=== PATIENT | male | born 1960 | race Caucasian/White ===

== ENCOUNTER 2016-11-04 19:04 | Emergency (ER) | payer MEDICAID ==
[2013-12-26 14:27] VITALS: BMI 24.4
[~2016-11-04 19:04] MED LIST: BACTRIM DS TABL1 TAB PO; HYDROCODONE-APA1 TAB PO; PERCOCET 10/3251 TA1 PO; PROAIR HFA8.5 GM INH; VALIUM10 MG PO
== END 2016-11-04 22:53 | disposition home or self-care (01) ==
LOC: D.ER 19:04
DX: G43.909 Migraine, unspecified, not intractable, without status migrainosus (principal); F17.200 Nicotine dependence, unspecified, uncomplicated

== ENCOUNTER 2016-11-06 09:10 | Emergency (ER) | payer MEDICAID ==
[2013-12-26 14:27] VITALS: BMI 24.4
== END 2016-11-06 10:29 | disposition home or self-care (01) ==
LOC: D.ER 09:10
DX: G43.909 Migraine, unspecified, not intractable, without status migrainosus (principal); F17.200 Nicotine dependence, unspecified, uncomplicated

== ENCOUNTER 2016-11-10 08:29 | Emergency (ER) | payer MEDICAID ==
[2013-12-26 14:27] VITALS: BMI 24.4
== END 2016-11-10 13:11 | disposition home or self-care (01) ==
LOC: D.ER 08:29
DX: G43.909 Migraine, unspecified, not intractable, without status migrainosus (principal)

== ENCOUNTER 2017-05-11 18:36 | Inpatient (IN) | payer MEDICAID ==
[~2017-05-11] VITALS: Ht 185.4 cm; Wt 72.3 kg
--- NOTE | ~2017-05-11 | OP ---
PATIENT NAME: JUANCARLOS ESPARZA MEDICAL RECORD: [id number] :56 LOCATION:D.M2 D.2139 ADMISSION DATE:05/12/17 SURGEON: DELON GUO MD DATE OF OPERATION: 05/22/2017 PREOPERATIVE DIAGNOSES: 1. 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 2. Hepatitis C. 3. Liver cirrhosis. POSTOPERATIVE DIAGNOSES: 1. 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 2. Hepatitis C. 3. Liver cirrhosis. PROCEDURE: 1. Left subclavian vein port placement. 2. Fluoroscopic interpretation. SURGEON: Delon Guo MD REPORT OF PROCEDURE: The patient's left chest was prepped and draped in sterile fashion. A needle was used to cannulate the left subclavian vein and a guidewire was advanced with ease. A Fluoro was used to note that the wire was in good position in the venous system. A skin incision was made on the left superior lateral chest and a subcutaneous pouch was made over the pectoral fascia. The catheter was tunneled between this pouch and the wire exit site. We then sutured the port to the fascia using interrupted 2-0 Prolenes times 2. The catheter was cut with a beveled tip at 24 cm. The dilator trocar device was placed over the wire and the wire and dilator were removed. The catheter tip was advanced through the trocar and the trocar was removed. The catheter tip was noted to be resting in good position at the right atrial superior vena caval junction. The catheter aspirated nonpulsatile dark blood and flushed easily with heparinized saline. The subcutaneous tissues were reapproximated with interrupted 3-0 Vicryls and the skin was closed with subcutaneous 5-0 Monocryl. We then accessed the port and placed a dressing over it. COMPLICATIONS: None. CONDITION: Stable. ANESTHESIA: General endotracheal. BLOOD LOSS: Minimal. TRANSINT:[id number] Voice Confirmation ID: [id number] DOCUMENT ID: [id number] OPERATIVE REPORT [id number] VILMAMONIKANathen Atkins DELON GUO MD at 0841 CC: [id number] DICTATION DATE: 05/22/17 1011 ONLINE PUBLISHER: 05/22/17 1055 DIS IN 05/23/17 [id number] [place] [address]
[2017-05-11 19:44] LABS: BASOPHILS 0.4 % (0-2); EOSINOPHILS 0.3 % (0-7); HEMATOCRIT 22.3 % (42.0-54.0); IMMATURE GRANULOCYTES 0.1 % (0-5); LYMPHOCYTES 13.6 % (15-50); MCV 60.8 fL (80.0-100.0); MONOCYTES 11.8 % (2-11); NEUTROPHILS 73.8 % (40-80); RBC 3.67 10x6/uL (4.20-6.10); RDW 18.5 % (11.5-14.5); WBC 9.1 10x3/uL (4.8-10.8)
[2017-05-11 20:15] LABS: ALBUMIN 2.8 g/dL (3.4-5.0); ALKALINE PHOSPHATASE 208 U/L (46-116); ALT (SGPT) 23 U/L (10-68); CALC OSMOLALITY 280 mosm/kg (275-300); CALCIUM 9.3 mg/dL (8.5-10.1); CARBON DIOXIDE 28.8 mmol/L (21.0-32.0); CHLORIDE - SERUM 104 mmol/L (98-107); CREATININE - SERUM 0.6 mg/dL (0.6-1.3); GLUCOSE 105 mg/dL (74-106); PROTEIN - SERUM 7.2 g/dL (6.4-8.2); SODIUM 141 mmol/L (136-145); UREA NITROGEN 12 mg/dL (7-18); eGFR NON AFRICAN AMERICAN > 90 mL/min (90-120)
[2017-05-11 20:17] LABS: HEMOGLOBIN 5.8 g/dL (13.5-17.5); MCH 15.8 pg (26.0-34.0); PLATELET COUNT 234 10x3/uL (130-400)
[2017-05-11 20:34] LABS: POTASSIUM - SERUM 2.4 mmol/L (3.5-5.1)
[2017-05-11 22:37] LABS: APPEARANCE CLEAR (CLEAR); BILIRUBIN NEGATIVE (NEGATIVE); COLOR YELLOW (YELLOW); GLUCOSE NEGATIVE (NEGATIVE); KETONE NEGATIVE (NEGATIVE); NITRITE NEGATIVE (NEGATIVE); PROTEIN NEGATIVE (NEGATIVE); UROBILINOGEN NORMAL (NORMAL)
[2017-05-11 22:50] LABS: UDS - AMPHET NEGATIVE QUAL (NEGATIVE); UDS - BARB NEGATIVE QUAL (NEGATIVE); UDS - BENZO NEGATIVE QUAL (NEGATIVE); UDS - COCAINE NEGATIVE QUAL (NEGATIVE); UDS - OPIATE NEGATIVE QUAL (NEGATIVE); UDS - PCP NEGATIVE QUAL (NEGATIVE); UDS - THC POSITIVE QUAL (NEGATIVE)
[2017-05-12] MEDS ORDERED: SOMA350 MG PO (03:06)
[2017-05-12] MEDS ORDERED: ALENDRONATE SOD70 MG PO (03:24)
[2017-05-12 03:32] VITALS: BP 184/82; BMI 19.8
[2017-05-12 06:16] VITALS: BP 192/83
[2017-05-12 07:33] LABS: HEMATOCRIT 30.1 % (42.0-54.0); HEMOGLOBIN 8.6 g/dL (13.5-17.5)
[2017-05-12 07:46] LABS: POTASSIUM - SERUM 2.6 mmol/L (3.5-5.1)
[2017-05-12 08:27] VITALS: BP 158/75
[2017-05-12 10:47] VITALS: BMI 19.7
[2017-05-12 11:46] VITALS: BP 165/77
[2017-05-12 13:18] VITALS: Ht 185.4 cm; Wt 72.3 kg
[2017-05-12 15:34] VITALS: BP 43/65
[2017-05-12 20:00] VITALS: BP 160/83
[2017-05-13] VITALS: BP 150/83
[2017-05-13 04:00] VITALS: BP 158/80
[2017-05-13 05:16] LABS: BASOPHILS 0.5 % (0-2); EOSINOPHILS 2.3 % (0-7); HEMATOCRIT 31.4 % (42.0-54.0); HEMOGLOBIN 8.7 g/dL (13.5-17.5); IMMATURE GRANULOCYTES 0.2 % (0-5); LYMPHOCYTES 11.7 % (15-50); MCHC 27.7 g/dL (31.0-37.0); MONOCYTES 12.1 % (2-11); NEUTROPHILS 73.2 % (40-80); RDW 20.7 % (11.5-14.5); WBC 8.1 10x3/uL (4.8-10.8)
[2017-05-13 05:24] LABS: MCH 18.4 pg (26.0-34.0); MCV 66.4 fL (80.0-100.0); PLATELET COUNT 152 10x3/uL (130-400); RBC 4.73 10x6/uL (4.20-6.10)
[2017-05-13 05:44] LABS: ALBUMIN 2.5 g/dL (3.4-5.0); ALKALINE PHOSPHATASE 232 U/L (46-116); ALT (SGPT) 27 U/L (10-68); CALC OSMOLALITY 285 mosm/kg (275-300); CARBON DIOXIDE 26.5 mmol/L (21.0-32.0); CHLORIDE - SERUM 108 mmol/L (98-107); CREATININE - SERUM 0.7 mg/dL (0.6-1.3); GLUCOSE 99 mg/dL (74-106); POTASSIUM - SERUM 3.1 mmol/L (3.5-5.1); PROTEIN - SERUM 6.7 g/dL (6.4-8.2); SODIUM 144 mmol/L (136-145); UREA NITROGEN 10 mg/dL (7-18); eGFR NON AFRICAN AMERICAN > 90 mL/min (90-120)
[2017-05-13 07:49] VITALS: BP 153/79
[2017-05-13 08:56] LABS: APTT 29.8 SECONDS (22.8-39.4); INR 1.12 (0.85-1.17)
[2017-05-13 11:15] VITALS: BP 130/71
[2017-05-13 15:14] VITALS: BP 140/73
[2017-05-13 20:00] VITALS: BP 162/79
[2017-05-14] VITALS: BP 164/84
[2017-05-14 04:00] VITALS: BP 171/85
[2017-05-14 05:47] LABS: BASOPHILS 0.5 % (0-2); EOSINOPHILS 1.9 % (0-7); HEMATOCRIT 31.6 % (42.0-54.0); HEMOGLOBIN 8.7 g/dL (13.5-17.5); IMMATURE GRANULOCYTES 0.4 % (0-5); LYMPHOCYTES 11.1 % (15-50); MCHC 27.5 g/dL (31.0-37.0); MCV 66.9 fL (80.0-100.0); MONOCYTES 10.9 % (2-11); NEUTROPHILS 75.2 % (40-80); PLATELET COUNT 163 10x3/uL (130-400); RBC 4.72 10x6/uL (4.20-6.10); RDW 21.5 % (11.5-14.5); WBC 8.3 10x3/uL (4.8-10.8)
[2017-05-14 05:54] LABS: ALBUMIN 2.6 g/dL (3.4-5.0); ALKALINE PHOSPHATASE 220 U/L (46-116); ALT (SGPT) 25 U/L (10-68); BILIRUBIN - TOTAL 0.81 mg/dL (0.2-1.3); CALC OSMOLALITY 276 mosm/kg (275-300); CARBON DIOXIDE 27.3 mmol/L (21.0-32.0); CHLORIDE - SERUM 103 mmol/L (98-107); CREATININE - SERUM 0.6 mg/dL (0.6-1.3); GLUCOSE 95 mg/dL (74-106); MCH 18.4 pg (26.0-34.0); POTASSIUM - SERUM 3.2 mmol/L (3.5-5.1); PROTEIN - SERUM 7.1 g/dL (6.4-8.2); SODIUM 139 mmol/L (136-145); UREA NITROGEN 9 mg/dL (7-18); eGFR NON AFRICAN AMERICAN > 90 mL/min (90-120)
[2017-05-14 07:38] VITALS: BP 148/78
[2017-05-14 09:55] LABS: INR 1.09 (0.85-1.17); PROTIME 13.7 SECONDS (11.6-15.0)
[2017-05-14 09:56] LABS: APTT 32.6 SECONDS (22.8-39.4)
[2017-05-14 10:20] LABS: HEPATITIS C ANTIBODY >11.0 (0.0-0.9)
[2017-05-14 11:14] VITALS: BP 148/82
[2017-05-14 11:19] LABS: ALPHA FETOPROTEIN -(TUMOR MRK) 632.3 ng/mL (0.0-8.3); CA 19-9 342 U/mL (0-35); CEA 4.3 ng/mL (0.0-4.7)
[2017-05-14 20:00] VITALS: BP 133/73
[2017-05-15] VITALS (12 sets, daily range): BP systolic 128–158; BP diastolic 70–92
[2017-05-15 05:40] LABS: BASOPHILS 0.3 % (0-2); EOSINOPHILS 1.8 % (0-7); HEMATOCRIT 27.7 % (42.0-54.0); HEMOGLOBIN 7.7 g/dL (13.5-17.5); IMMATURE GRANULOCYTES 0.2 % (0-5); LYMPHOCYTES 7.6 % (15-50); MCHC 27.8 g/dL (31.0-37.0); MCV 66.9 fL (80.0-100.0); NEUTROPHILS 76.1 % (40-80); RBC 4.14 10x6/uL (4.20-6.10); RDW 22.4 % (11.5-14.5)
[2017-05-15 05:47] LABS: MCH 18.6 pg (26.0-34.0); PLATELET COUNT 130 10x3/uL (130-400); WBC 6.2 10x3/uL (4.8-10.8)
[2017-05-15 06:00] LABS: ALBUMIN 2.3 g/dL (3.4-5.0); ALKALINE PHOSPHATASE 179 U/L (46-116); ALT (SGPT) 17 U/L (10-68); BILIRUBIN - TOTAL 0.68 mg/dL (0.2-1.3); CALC OSMOLALITY 273 mosm/kg (275-300); CALCIUM 8.8 mg/dL (8.5-10.1); CARBON DIOXIDE 28.3 mmol/L (21.0-32.0); CHLORIDE - SERUM 103 mmol/L (98-107); CREATININE - SERUM 0.6 mg/dL (0.6-1.3); GLUCOSE 96 mg/dL (74-106); POTASSIUM - SERUM 3.5 mmol/L (3.5-5.1); PROTEIN - SERUM 6.3 g/dL (6.4-8.2); SODIUM 138 mmol/L (136-145); UREA NITROGEN 8 mg/dL (7-18); eGFR NON AFRICAN AMERICAN > 90 mL/min (90-120)
[2017-05-16] VITALS (7 sets, daily range): BP systolic 135–159; BP diastolic 79–87
[2017-05-16 05:41] LABS: BASOPHILS 0.3 % (0-2); EOSINOPHILS 2.4 % (0-7); IMMATURE GRANULOCYTES 0.2 % (0-5); LYMPHOCYTES 9.2 % (15-50); MCH 20.4 pg (26.0-34.0); MCHC 29.2 g/dL (31.0-37.0); NEUTROPHILS 71.9 % (40-80); PLATELET COUNT 119 10x3/uL (130-400); RDW 23.7 % (11.5-14.5); WBC 6.2 10x3/uL (4.8-10.8)
[2017-05-16 05:43] LABS: HEMATOCRIT 33.6 % (42.0-54.0); HEMOGLOBIN 9.8 g/dL (13.5-17.5)
[2017-05-16 06:09] LABS: ALBUMIN 2.2 g/dL (3.4-5.0); ALKALINE PHOSPHATASE 183 U/L (46-116); ALT (SGPT) 20 U/L (10-68); CALC OSMOLALITY 276 mosm/kg (275-300); CALCIUM 9.2 mg/dL (8.5-10.1); CARBON DIOXIDE 30.2 mmol/L (21.0-32.0); CHLORIDE - SERUM 105 mmol/L (98-107); CREATININE - SERUM 0.6 mg/dL (0.6-1.3); GLUCOSE 105 mg/dL (74-106); POTASSIUM - SERUM 3.4 mmol/L (3.5-5.1); PROTEIN - SERUM 6.5 g/dL (6.4-8.2); SODIUM 139 mmol/L (136-145); UREA NITROGEN 10 mg/dL (7-18); eGFR NON AFRICAN AMERICAN > 90 mL/min (90-120)
[2017-05-17 02:14] VITALS: BP 118/52
[2017-05-17 05:36] VITALS: BP 153/89
[2017-05-17 05:39] LABS: BASOPHILS 0.6 % (0-2); EOSINOPHILS 1.9 % (0-7); HEMATOCRIT 35.3 % (42.0-54.0); HEMOGLOBIN 10.1 g/dL (13.5-17.5); IMMATURE GRANULOCYTES 0.1 % (0-5); LYMPHOCYTES 8.4 % (15-50); MCH 20.7 pg (26.0-34.0); MCHC 28.6 g/dL (31.0-37.0); MONOCYTES 15.6 % (2-11); NEUTROPHILS 73.4 % (40-80); PLATELET COUNT 128 10x3/uL (130-400); RBC 4.89 10x6/uL (4.20-6.10); RDW 24.3 % (11.5-14.5); WBC 6.8 10x3/uL (4.8-10.8)
[2017-05-17 05:41] LABS: MCV 72.2 fL (80.0-100.0)
[2017-05-17 06:11] LABS: ALBUMIN 2.4 g/dL (3.4-5.0); ALKALINE PHOSPHATASE 212 U/L (46-116); ALT (SGPT) 21 U/L (10-68); BILIRUBIN - TOTAL 0.54 mg/dL (0.2-1.3); CALC OSMOLALITY 278 mosm/kg (275-300); CALCIUM 9.5 mg/dL (8.5-10.1); CARBON DIOXIDE 27.5 mmol/L (21.0-32.0); CHLORIDE - SERUM 104 mmol/L (98-107); CREATININE - SERUM 0.6 mg/dL (0.6-1.3); GLUCOSE 109 mg/dL (74-106); POTASSIUM - SERUM 3.7 mmol/L (3.5-5.1); PROTEIN - SERUM 6.4 g/dL (6.4-8.2); SODIUM 140 mmol/L (136-145); UREA NITROGEN 9 mg/dL (7-18); eGFR NON AFRICAN AMERICAN > 90 mL/min (90-120)
[2017-05-17 08:29] VITALS: BP 162/99
[2017-05-17 11:31] VITALS: BP 137/81
[2017-05-17 15:47] VITALS: BP 150/86
[2017-05-17 21:12] VITALS: BP 143/79
[2017-05-18 01:18] VITALS: BP 156/89
[2017-05-18 05:50] VITALS: BP 143/83
[2017-05-18 06:12] LABS: BASOPHILS 0.4 % (0-2); EOSINOPHILS 2.2 % (0-7); HEMATOCRIT 35.7 % (42.0-54.0); HEMOGLOBIN 10.1 g/dL (13.5-17.5); IMMATURE GRANULOCYTES 0.3 % (0-5); LYMPHOCYTES 10.8 % (15-50); MCH 20.4 pg (26.0-34.0); MCHC 28.3 g/dL (31.0-37.0); MCV 72.3 fL (80.0-100.0); MONOCYTES 13.3 % (2-11); PLATELET COUNT 120 10x3/uL (130-400); RBC 4.94 10x6/uL (4.20-6.10); RDW 24.3 % (11.5-14.5); WBC 6.8 10x3/uL (4.8-10.8)
[2017-05-18 06:38] LABS: ALBUMIN 2.4 g/dL (3.4-5.0); ALKALINE PHOSPHATASE 214 U/L (46-116); ALT (SGPT) 20 U/L (10-68); CALC OSMOLALITY 282 mosm/kg (275-300); CALCIUM 9.8 mg/dL (8.5-10.1); CHLORIDE - SERUM 104 mmol/L (98-107); CREATININE - SERUM 0.6 mg/dL (0.6-1.3); GLUCOSE 120 mg/dL (74-106); POTASSIUM - SERUM 3.8 mmol/L (3.5-5.1); PROTEIN - SERUM 6.5 g/dL (6.4-8.2); SODIUM 142 mmol/L (136-145); UREA NITROGEN 11 mg/dL (7-18); eGFR NON AFRICAN AMERICAN > 90 mL/min (90-120)
[2017-05-18 07:40] VITALS: BP 144/81
[2017-05-18 10:44] VITALS: BP 142/77
[2017-05-18 14:57] VITALS: BP 140/73
[2017-05-18 19:00] VITALS: BP 148/84
[2017-05-19 04:00] VITALS: BP 149/84
[2017-05-19 05:50] LABS: BASOPHILS 0.3 % (0-2); EOSINOPHILS 2.2 % (0-7); HEMATOCRIT 34.2 % (42.0-54.0); HEMOGLOBIN 9.7 g/dL (13.5-17.5); IMMATURE GRANULOCYTES 0.2 % (0-5); LYMPHOCYTES 8.6 % (15-50); MCH 20.5 pg (26.0-34.0); MCHC 28.4 g/dL (31.0-37.0); MCV 72.2 fL (80.0-100.0); MONOCYTES 13.4 % (2-11); NEUTROPHILS 75.3 % (40-80); PLATELET COUNT 114 10x3/uL (130-400); RBC 4.74 10x6/uL (4.20-6.10); RDW 24.6 % (11.5-14.5); WBC 6.4 10x3/uL (4.8-10.8)
[2017-05-19 06:17] LABS: ALBUMIN 2.2 g/dL (3.4-5.0); ALKALINE PHOSPHATASE 201 U/L (46-116); ALT (SGPT) 19 U/L (10-68); CALC OSMOLALITY 280 mosm/kg (275-300); CALCIUM 9.6 mg/dL (8.5-10.1); CARBON DIOXIDE 30.3 mmol/L (21.0-32.0); CHLORIDE - SERUM 105 mmol/L (98-107); CREATININE - SERUM 0.6 mg/dL (0.6-1.3); GLUCOSE 108 mg/dL (74-106); POTASSIUM - SERUM 3.5 mmol/L (3.5-5.1); PROTEIN - SERUM 6.3 g/dL (6.4-8.2); SODIUM 141 mmol/L (136-145); UREA NITROGEN 10 mg/dL (7-18); eGFR NON AFRICAN AMERICAN > 90 mL/min (90-120)
[2017-05-19 08:04] VITALS: BP 142/81
[2017-05-19 15:06] VITALS: BP 132/71
[2017-05-19 20:00] VITALS: BP 143/84
[2017-05-20 04:00] VITALS: BP 141/84
[2017-05-20 06:12] LABS: BASOPHILS 0.6 % (0-2); EOSINOPHILS 1.8 % (0-7); HEMOGLOBIN 10.2 g/dL (13.5-17.5); IMMATURE GRANULOCYTES 0.3 % (0-5); LYMPHOCYTES 7.7 % (15-50); MCH 20.6 pg (26.0-34.0); MCHC 28.3 g/dL (31.0-37.0); MCV 72.9 fL (80.0-100.0); MONOCYTES 16.8 % (2-11); NEUTROPHILS 72.8 % (40-80); PLATELET COUNT 134 10x3/uL (130-400); RBC 4.94 10x6/uL (4.20-6.10); RDW 25.2 % (11.5-14.5); WBC 7.1 10x3/uL (4.8-10.8)
[2017-05-20 07:03] LABS: ALBUMIN 2.3 g/dL (3.4-5.0); ALKALINE PHOSPHATASE 245 U/L (46-116); ALT (SGPT) 20 U/L (10-68); BILIRUBIN - TOTAL 0.49 mg/dL (0.2-1.3); CALC OSMOLALITY 282 mosm/kg (275-300); CALCIUM 10.2 mg/dL (8.5-10.1); CARBON DIOXIDE 28.5 mmol/L (21.0-32.0); CHLORIDE - SERUM 105 mmol/L (98-107); CREATININE - SERUM 0.7 mg/dL (0.6-1.3); GLUCOSE 111 mg/dL (74-106); POTASSIUM - SERUM 3.7 mmol/L (3.5-5.1); SODIUM 142 mmol/L (136-145); UREA NITROGEN 10 mg/dL (7-18); eGFR NON AFRICAN AMERICAN > 90 mL/min (90-120)
[2017-05-20 08:57] VITALS: BP 176/105
[2017-05-20 12:16] VITALS: BP 138/79
[2017-05-20 16:10] VITALS: BP 145/88
[2017-05-20 20:00] VITALS: BP 139/88
[2017-05-21 04:00] VITALS: BP 142/79
[2017-05-21 05:57] LABS: BASOPHILS 0.3 % (0-2); EOSINOPHILS 1.5 % (0-7); HEMATOCRIT 34.7 % (42.0-54.0); HEMOGLOBIN 9.9 g/dL (13.5-17.5); IMMATURE GRANULOCYTES 0.2 % (0-5); LYMPHOCYTES 8.7 % (15-50); MCH 20.7 pg (26.0-34.0); MCHC 28.5 g/dL (31.0-37.0); MCV 72.4 fL (80.0-100.0); MONOCYTES 16.1 % (2-11); NEUTROPHILS 73.2 % (40-80); PLATELET COUNT 133 10x3/uL (130-400); RBC 4.79 10x6/uL (4.20-6.10); RDW 25.4 % (11.5-14.5); WBC 6.5 10x3/uL (4.8-10.8)
[2017-05-21 06:23] LABS: ALBUMIN 2.2 g/dL (3.4-5.0); ALKALINE PHOSPHATASE 252 U/L (46-116); ALT (SGPT) 22 U/L (10-68); CALC OSMOLALITY 285 mosm/kg (275-300); CALCIUM 10.6 mg/dL (8.5-10.1); CARBON DIOXIDE 29.4 mmol/L (21.0-32.0); CHLORIDE - SERUM 107 mmol/L (98-107); CREATININE - SERUM 0.6 mg/dL (0.6-1.3); GLUCOSE 110 mg/dL (74-106); POTASSIUM - SERUM 3.8 mmol/L (3.5-5.1); PROTEIN - SERUM 6.8 g/dL (6.4-8.2); SODIUM 143 mmol/L (136-145); UREA NITROGEN 12 mg/dL (7-18); eGFR NON AFRICAN AMERICAN > 90 mL/min (90-120)
[2017-05-21 09:35] VITALS: BP 110/60
[2017-05-21 18:42] VITALS: BP 145/95
[2017-05-21 20:00] VITALS: BP 150/92
[2017-05-22] VITALS (7 sets, daily range): BP systolic 148–166; BP diastolic 77–98
[2017-05-22 06:04] LABS: BASOPHILS 0.3 % (0-2); EOSINOPHILS 1.4 % (0-7); HEMATOCRIT 36.7 % (42.0-54.0); HEMOGLOBIN 10.6 g/dL (13.5-17.5); IMMATURE GRANULOCYTES 0.4 % (0-5); LYMPHOCYTES 9.3 % (15-50); MCHC 28.9 g/dL (31.0-37.0); MCV 72.8 fL (80.0-100.0); MONOCYTES 13.6 % (2-11); PLATELET COUNT 155 10x3/uL (130-400); RBC 5.04 10x6/uL (4.20-6.10); RDW 25.3 % (11.5-14.5); WBC 7.6 10x3/uL (4.8-10.8)
[2017-05-22 06:11] LABS: ALBUMIN 2.4 g/dL (3.4-5.0); ALKALINE PHOSPHATASE 275 U/L (46-116); ALT (SGPT) 21 U/L (10-68); CARBON DIOXIDE 29.2 mmol/L (21.0-32.0); CHLORIDE - SERUM 107 mmol/L (98-107); GLUCOSE 112 mg/dL (74-106); PROTEIN - SERUM 7.3 g/dL (6.4-8.2); SODIUM 142 mmol/L (136-145); eGFR NON AFRICAN AMERICAN 81 mL/min (90-120)
[2017-05-22 06:17] LABS: CALC OSMOLALITY 284 mosm/kg (275-300); UREA NITROGEN 16 mg/dL (7-18)
[2017-05-23 01:14] VITALS: BP 114/78
[2017-05-23 05:05] VITALS: BP 143/74
[2017-05-23 08:27] VITALS: BP 162/81
[2017-05-23] MEDS ORDERED: DURAGESIC1 PATCH .7 TRANSDERM (09:38)
[2017-05-23] MEDS ORDERED: HYDROCODONE-APA1 TAB PO (09:40)
[2017-05-23] MEDS ORDERED: PROTONIX40 MG PO (09:42)
[2017-05-23] MEDS ORDERED: MIRALAX17 GM PO (09:42)
== END 2017-05-23 17:55 | disposition home health service (06) | DRG 436 ==
LOC: D.ER 18:36 → D.M2 05-12 00:48
PROVIDERS: Emergency Medicine; Family Medicine; Internal Medicine Hematology & Oncology; Specialist; Surgery
PROC: 05H633Z Insertion of Infusion Device into Left Subclavian Vein, Percutaneous Approach (ICD-10-PCS; 2017-05-22)
PROC: 0JH63WZ Insertion of Totally Implantable Vascular Access Device into Chest Subcutaneous Tissue and Fascia, Percutaneous Approach (ICD-10-PCS; principal; 2017-05-22 09:00)
DX: C78.7 Secondary malignant neoplasm of liver and intrahepatic bile duct (principal); R18.8 Other ascites; C25.9 Malignant neoplasm of pancreas, unspecified; K21.9 Gastro-esophageal reflux disease without esophagitis; G89.29 Other chronic pain; D64.9 Anemia, unspecified; K74.60 Unspecified cirrhosis of liver; Z87.891 Personal history of nicotine dependence

== ENCOUNTER 2017-05-29 16:11 | Inpatient (IN) | payer MEDICAID ==
[~2017-05-29] VITALS: Ht 182.9 cm; Wt 70.8 kg
[~2017-05-29 16:11] MED LIST changes: +ALENDRONATE SOD70 MG PO; +DURAGESIC1 PATCH .7 TRANSDERM; +MIRALAX17 GM PO; +PROTONIX40 MG PO; +SOMA350 MG PO
[2017-05-29 17:47] LABS: BASOPHILS 0.3 % (0-2); EOSINOPHILS 0.5 % (0-7); HEMATOCRIT 39.1 % (42.0-54.0); HEMOGLOBIN 11.4 g/dL (13.5-17.5); IMMATURE GRANULOCYTES 0.2 % (0-5); MCH 21.3 pg (26.0-34.0); MCHC 29.2 g/dL (31.0-37.0); MCV 73.2 fL (80.0-100.0); MONOCYTES 10.8 % (2-11); NEUTROPHILS 77.2 % (40-80); RBC 5.34 10x6/uL (4.20-6.10); RDW 25.6 % (11.5-14.5); WBC 10.1 10x3/uL (4.8-10.8)
[2017-05-29 18:07] LABS: INR 1.08 (0.85-1.17); PROTIME 13.6 SECONDS (11.6-15.0)
[2017-05-29 18:08] LABS: PLATELET COUNT 229 10x3/uL (130-400)
[2017-05-29 18:12] LABS: ALBUMIN 2.4 g/dL (3.4-5.0); ALKALINE PHOSPHATASE 393 U/L (46-116); ALT (SGPT) 23 U/L (10-68); CALC OSMOLALITY 287 mosm/kg (275-300); CALCIUM 10.6 mg/dL (8.5-10.1); CARBON DIOXIDE 26.5 mmol/L (21.0-32.0); CHLORIDE - SERUM 106 mmol/L (98-107); CREATINE KINASE 43 UL (21-232); CREATININE - SERUM 1.6 mg/dL (0.6-1.3); GLUCOSE 110 mg/dL (74-106); LIPASE 121 U/L (73-393); MAGNESIUM - SERUM 2.4 mg/dL (1.8-2.4); POTASSIUM - SERUM 4.1 mmol/L (3.5-5.1); PRO BNP 554 pg/mL (0-125); PROTEIN - SERUM 7.2 g/dL (6.4-8.2); SODIUM 140 mmol/L (136-145); TROPONIN-I < 0.017 ng/mL (0.000-0.060); UREA NITROGEN 34 mg/dL (7-18); eGFR NON AFRICAN AMERICAN 47 mL/min (90-120)
[2017-05-30] VITALS (7 sets, daily range): BP systolic 119–160; BP diastolic 78–90; Ht 182.9 cm; Wt 70.8 kg
[2017-05-31] VITALS: BP 137/81
[2017-05-31 04:05] VITALS: BP 120/79
[2017-05-31 07:07] LABS: BASOPHILS 0.2 % (0-2); HEMATOCRIT 38.7 % (42.0-54.0); HEMOGLOBIN 11.3 g/dL (13.5-17.5); IMMATURE GRANULOCYTES 0.4 % (0-5); LYMPHOCYTES 7.1 % (15-50); MCH 21.4 pg (26.0-34.0); MCHC 29.2 g/dL (31.0-37.0); MCV 73.2 fL (80.0-100.0); MONOCYTES 11.5 % (2-11); NEUTROPHILS 79.8 % (40-80); PLATELET COUNT 171 10x3/uL (130-400); RBC 5.29 10x6/uL (4.20-6.10); RDW 26.1 % (11.5-14.5); WBC 10.3 10x3/uL (4.8-10.8)
[2017-05-31 07:35] LABS: ALBUMIN 2.2 g/dL (3.4-5.0); BILIRUBIN - TOTAL 0.58 mg/dL (0.2-1.3); CARBON DIOXIDE 24.5 mmol/L (21.0-32.0); CREATININE - SERUM 1.4 mg/dL (0.6-1.3); POTASSIUM - SERUM 4.5 mmol/L (3.5-5.1); PROTEIN - SERUM 7.1 g/dL (6.4-8.2)
[2017-05-31 09:18] VITALS: BP 137/76
[2017-05-31 12:09] VITALS: BP 149/85
[2017-05-31 16:09] VITALS: BP 135/79
[2017-05-31 20:54] VITALS: BP 158/101
[2017-05-31 23:17] LABS: APPEARANCE CLEAR (CLEAR); COLOR YELLOW (YELLOW); GLUCOSE NEGATIVE (NEGATIVE); NITRITE NEGATIVE (NEGATIVE); PROTEIN NEGATIVE (NEGATIVE); SPECIFIC GRAVITY 1.015 (1.005-1.020)
[2017-05-31 23:18] LABS: BILIRUBIN NEGATIVE (NEGATIVE); KETONE SMALL mg/dL (NEGATIVE); UROBILINOGEN NORMAL (NORMAL)
[2017-05-31 23:26] LABS: UDS - AMPHET NEGATIVE QUAL (NEGATIVE); UDS - BARB NEGATIVE QUAL (NEGATIVE); UDS - BENZO POSITIVE QUAL (NEGATIVE); UDS - COCAINE NEGATIVE QUAL (NEGATIVE); UDS - OPIATE POSITIVE QUAL (NEGATIVE); UDS - PCP NEGATIVE QUAL (NEGATIVE); UDS - THC POSITIVE QUAL (NEGATIVE)
[2017-06-01 00:26] VITALS: BP 125/81
[2017-06-01 06:03] VITALS: BP 128/83
[2017-06-01 08:27] VITALS: BP 147/88
[2017-06-01 12:29] VITALS: BP 135/92
[2017-06-01 16:48] VITALS: BP 139/88
[2017-06-01 19:52] VITALS: BP 125/85
[2017-06-02 00:01] VITALS: BP 138/85
[2017-06-02 04:17] VITALS: BP 141/88
[2017-06-02 09:15] VITALS: BP 141/81
[2017-06-02] MEDS ORDERED: Duragesic TRANSDERM (12:56)
[2017-06-02] MEDS ORDERED: Levaquin PO (12:56)
[2017-06-02] MEDS ORDERED: ARTIFICIAL TEAR15 ML EACH EYE (12:57)
[2017-06-02] MEDS ORDERED: FLORAJEN3 CAPS460 MG PO (12:57)
[2017-06-02] MEDS ORDERED: LAC-HYDRIN 5226 ML TOPICAL (12:58)
[2017-06-02] MEDS ORDERED: DILAUDID4 MG PO (13:01)
[2017-06-02 14:25] VITALS: BP 138/88
== END 2017-06-02 15:46 | disposition home health service (06) | DRG 947 ==
LOC: D.ER 16:11 → D.MS 17:52 → D.EDHOLD 17:52 → D.MS 19:25
PROVIDERS: Family Medicine; Nurse Practitioner Family
DX: G89.3 Neoplasm related pain (acute) (chronic) (principal); J18.9 Pneumonia, unspecified organism; C25.9 Malignant neoplasm of pancreas, unspecified; C78.7 Secondary malignant neoplasm of liver and intrahepatic bile duct; N17.9 Acute kidney failure, unspecified; J90 Pleural effusion, not elsewhere classified; Z66 Do not resuscitate; R18.8 Other ascites; K74.60 Unspecified cirrhosis of liver; B19.20 Unspecified viral hepatitis C without hepatic coma; R91.8 Other nonspecific abnormal finding of lung field; F17.200 Nicotine dependence, unspecified, uncomplicated

== ENCOUNTER 2017-06-05 17:24 | Inpatient (IN) | payer MEDICAID ==
[~2017-06-05] VITALS: Ht 182.9 cm; Wt 70.9 kg
[~2017-06-05 17:24] MED LIST changes: +ARTIFICIAL TEAR15 ML EACH EYE; +DILAUDID4 MG PO; +Duragesic TRANSDERM; +FLORAJEN3 CAPS460 MG PO; +LAC-HYDRIN 5226 ML TOPICAL; +Levaquin PO
[2017-06-05 18:48] LABS: ALBUMIN 2.1 g/dL (3.4-5.0); ANION GAP 17.6 mmol/L (8-16); BILIRUBIN - TOTAL 0.57 mg/dL (0.2-1.3); CALCIUM 9.4 mg/dL (8.5-10.1); CARBON DIOXIDE 22.1 mmol/L (21.0-32.0); CREATININE - SERUM 2.2 mg/dL (0.6-1.3); POTASSIUM - SERUM 4.7 mmol/L (3.5-5.1); PROTEIN - SERUM 6.8 g/dL (6.4-8.2)
[2017-06-05 18:52] LABS: INR 1.2 (0.85-1.17); PROTIME 14.8 SECONDS (11.6-15.0)
[2017-06-05 18:53] LABS: TROPONIN-I 0.023 ng/mL (0.000-0.060)
[2017-06-05 18:57] LABS: BASOPHILS 0.1 % (0-2); EOSINOPHILS 0.2 % (0-7); HEMATOCRIT 37.1 % (42.0-54.0); HEMOGLOBIN 11.4 g/dL (13.5-17.5); IMMATURE GRANULOCYTES 0.3 % (0-5); LYMPHOCYTES 4.6 % (15-50); MCHC 30.7 g/dL (31.0-37.0); MCV 71.5 fL (80.0-100.0); MONOCYTES 12.3 % (2-11); NEUTROPHILS 82.5 % (40-80); PLATELET COUNT 161 10x3/uL (130-400); RBC 5.19 10x6/uL (4.20-6.10); WBC 14.4 10x3/uL (4.8-10.8)
[2017-06-05 23:54] VITALS: BP 132/85
[2017-06-06 00:15] VITALS: BP 132/85; BMI 21.2
[2017-06-06 04:29] VITALS: BP 114/67
[2017-06-06 05:09] LABS: BASOPHILS 0.1 % (0-2); EOSINOPHILS 0.1 % (0-7); HEMOGLOBIN 10.5 g/dL (13.5-17.5); IMMATURE GRANULOCYTES 0.3 % (0-5); LYMPHOCYTES 10.1 % (15-50); MCH 21.6 pg (26.0-34.0); MCV 72.2 fL (80.0-100.0); MONOCYTES 7.9 % (2-11); NEUTROPHILS 81.5 % (40-80); PLATELET COUNT 136 10x3/uL (130-400); RBC 4.85 10x6/uL (4.20-6.10); WBC 13.2 10x3/uL (4.8-10.8)
[2017-06-06 05:17] LABS: ALBUMIN 1.9 g/dL (3.4-5.0); ANION GAP 16.4 mmol/L (8-16); BILIRUBIN - TOTAL 0.5 mg/dL (0.2-1.3); CALCIUM 9.1 mg/dL (8.5-10.1); CARBON DIOXIDE 21.6 mmol/L (21.0-32.0); CREATININE - SERUM 2.4 mg/dL (0.6-1.3); PROTEIN - SERUM 6.2 g/dL (6.4-8.2)
[2017-06-06 08:40] VITALS: BP 111/71
[2017-06-06 12:36] VITALS: BP 112/65
[2017-06-06 12:47] VITALS: Ht 182.9 cm; Wt 70.9 kg
[2017-06-06 16:56] VITALS: BP 109/61
[2017-06-06 20:27] VITALS: BP 97/63
[2017-06-07] VITALS (12 sets, daily range): BP systolic 86–109; BP diastolic 47–68
[2017-06-07 14:10] LABS: EOS BF 2 %; NEUT - BF 6 %
[2017-06-08 08:38] VITALS: BP 105/63
[2017-06-08 12:23] VITALS: BP 94/56
[2017-06-08 13:36] LABS: BASOPHILS 0.1 % (0-2); EOSINOPHILS 0.2 % (0-7); HEMATOCRIT 32.5 % (42.0-54.0); HEMOGLOBIN 9.9 g/dL (13.5-17.5); IMMATURE GRANULOCYTES 0.3 % (0-5); MCH 21.8 pg (26.0-34.0); MCHC 30.5 g/dL (31.0-37.0); MCV 71.4 fL (80.0-100.0); NEUTROPHILS 82.4 % (40-80); RBC 4.55 10x6/uL (4.20-6.10); WBC 10.1 10x3/uL (4.8-10.8)
[2017-06-08 13:55] LABS: PLATELET COUNT 97 10x3/uL (130-400)
[2017-06-08 14:05] LABS: ALBUMIN 1.9 g/dL (3.4-5.0); ANION GAP 17.8 mmol/L (8-16); BILIRUBIN - TOTAL 0.4 mg/dL (0.2-1.3); CALCIUM 8.5 mg/dL (8.5-10.1); CREATININE - SERUM 3.5 mg/dL (0.6-1.3); POTASSIUM - SERUM 5.8 mmol/L (3.5-5.1); PROTEIN - SERUM 5.8 g/dL (6.4-8.2)
[2017-06-08 14:23] LABS: PLATELET ESTIMATE DECREASED
[2017-06-08 16:33] LABS: APPEARANCE CLEAR (CLEAR); COLOR DK YELLOW (YELLOW); GLUCOSE NEGATIVE (NEGATIVE); KETONE NEGATIVE (NEGATIVE); NITRITE NEGATIVE (NEGATIVE); PROTEIN NEGATIVE (NEGATIVE); SPECIFIC GRAVITY 1.015 (1.005-1.020)
[2017-06-08 16:34] LABS: BILIRUBIN NEGATIVE (NEGATIVE); UROBILINOGEN NORMAL (NORMAL)
[2017-06-08 16:37] VITALS: BP 96/61
[2017-06-08 16:56] LABS: UDS - AMPHET NEGATIVE QUAL (NEGATIVE); UDS - BARB NEGATIVE QUAL (NEGATIVE); UDS - BENZO POSITIVE QUAL (NEGATIVE); UDS - COCAINE NEGATIVE QUAL (NEGATIVE); UDS - OPIATE POSITIVE QUAL (NEGATIVE); UDS - PCP NEGATIVE QUAL (NEGATIVE); UDS - THC POSITIVE QUAL (NEGATIVE)
[2017-06-08 20:29] VITALS: BP 104/62
[2017-06-09 04:14] VITALS: BP 105/61
[2017-06-09 06:03] LABS: BASOPHILS 0.1 % (0-2); EOSINOPHILS 0.1 % (0-7); HEMATOCRIT 32.2 % (42.0-54.0); HEMOGLOBIN 9.6 g/dL (13.5-17.5); IMMATURE GRANULOCYTES 0.4 % (0-5); LYMPHOCYTES 3.5 % (15-50); MCH 21.5 pg (26.0-34.0); MCHC 29.8 g/dL (31.0-37.0); NEUTROPHILS 82.9 % (40-80); PLATELET COUNT 79 10x3/uL (130-400); RBC 4.47 10x6/uL (4.20-6.10); WBC 9.2 10x3/uL (4.8-10.8)
[2017-06-09 06:43] LABS: ALBUMIN 1.8 g/dL (3.4-5.0); ANION GAP 14.4 mmol/L (8-16); BILIRUBIN - TOTAL 0.5 mg/dL (0.2-1.3); CALCIUM 8.2 mg/dL (8.5-10.1); CARBON DIOXIDE 22.6 mmol/L (21.0-32.0); CREATININE - SERUM 3.8 mg/dL (0.6-1.3); PROTEIN - SERUM 5.6 g/dL (6.4-8.2)
[2017-06-09 08:32] VITALS: BP 111/64
[2017-06-09 11:44] VITALS: BP 99/58
== END 2017-06-09 15:41 | disposition home health service (06) | DRG 187 ==
LOC: D.ER 17:24 → D.MS 21:39 → D.EDHOLD 21:39 → D.MS 22:01
PROVIDERS: Family Medicine; Internal Medicine Nephrology; Nurse Practitioner Family; Radiology Diagnostic Radiology
PROC: 0W9G3ZZ Drainage of Peritoneal Cavity, Percutaneous Approach (ICD-10-PCS; principal; 2017-06-07 11:50)
PROC: 0W993ZZ Drainage of Right Pleural Cavity, Percutaneous Approach (ICD-10-PCS; 2017-06-07 11:50)
DX: J90 Pleural effusion, not elsewhere classified (principal); C25.9 Malignant neoplasm of pancreas, unspecified; C78.7 Secondary malignant neoplasm of liver and intrahepatic bile duct; C78.00 Secondary malignant neoplasm of unspecified lung; C79.51 Secondary malignant neoplasm of bone; S22.31XA Fracture of one rib, right side, initial encounter for closed fracture; Z68.1 Body mass index [BMI] 19.9 or less, adult; K76.6 Portal hypertension; N17.9 Acute kidney failure, unspecified; R07.9 Chest pain, unspecified; X58.XXXA Exposure to other specified factors, initial encounter; G89.29 Other chronic pain; D64.9 Anemia, unspecified; R63.6 Underweight; N18.9 Chronic kidney disease, unspecified; H04.129 Dry eye syndrome of unspecified lacrimal gland; R60.9 Edema, unspecified; K74.60 Unspecified cirrhosis of liver; K75.9 Inflammatory liver disease, unspecified; Z68.21 Body mass index [BMI] 21.0-21.9, adult